=== PATIENT | male | born 1980 | race Caucasian/White ===

== ENCOUNTER 2017-12-05 11:05 | Emergency (ER) | payer BC ==
[2017-12-05] MEDS ORDERED: Sodium Chloride 0.9% 10 ML Syringe FLUSH PRN (11:26)
--- NOTE | 2017-12-05 14:13 | EDM.PDOC ---
ED HPI GENERAL MEDICAL PROBLEM - General Chief Complaint: Upper Extremity Injury/Pain Stated Complaint: HAND RED AND SWOLLEN SENT BY DR ROMERO Time Seen by Provider: 12/05/17 11:14 Source of Information: Reports: Patient History Limitations: Reports: No Limitations - History of Present Illness INITIAL COMMENTS - FREE TEXT/NARRATIVE: The patient presents with right wrist pain and swelling. He says a few days ago he had a rash that he scrubbed good and he got an abrasion to the dorsal aspect of his wrist. He then developed redness swelling and pain. He went to the walk in clinic at [place] and they put him on some doxycycline. That was on and he has more swelling and pain. He denies a fever. He is right handed. Onset: Gradual Duration: Day(s): Location: Reports: Upper Extremity, Right (wrist) Quality: Reports: Sharp Severity: Moderate Improves with: Reports: Immobilization Worsens with: Reports: Movement Context: Reports: Activity (he was scrubing a rash) Associated Symptoms: Reports: No Other Symptoms Treatments [employer]: Reports: Other (see below) Other Treatments [employer]: doxycycline Right Hand Pain Score (Numeric/FACES): 5 - Related Data Allergies Allergy/AdvReac Type Severity Reaction Status Date / Time chocolate flavor Allergy Sweating Verified 12/04/14 07:19 tomato Allergy Sweating Verified 12/04/14 07:19 wheat Allergy Sweating Verified 12/04/14 07:19 Home Meds: Home Meds Doxycycline [Vibramycin] 100 mg PO BID 12/05/17 [History] Past Medical History Cardiovascular History: Reports: Other (See Below) Other Cardiovascular History: chest surgery to remove glands in chest - Past Surgical History HEENT Surgical History: Reports: Oral Surgery Musculoskeletal Surgical History: Reports: Other (See Below) Other Musculoskeletal Surgeries/Procedures:: ACL replace surgery to right knee; L4-L5 back surgery cleaned out;spinalstenosis and widened the vertibrae Social & Family History - Tobacco Use Smoking Status *Q: Never Smoker - Caffeine Use Caffeine Use: Reports: Coffee, Soda, Tea - Recreational Drug Use Recreational Drug Use: No Review of Systems - Review of Systems Review Of Systems: See Below Constitutional: Reports: No Symptoms Ears: Reports: No Symptoms Nose: Reports: No Symptoms Mouth/Throat: Reports: No Symptoms Respiratory: Reports: No Symptoms Cardiovascular: Reports: No Symptoms GI/Abdominal: Reports: No Symptoms Genitourinary: Reports: No Symptoms Musculoskeletal: Reports: Other (Right wrist has pain, swelling and erythema) ED EXAM, GENERAL - Physical Exam Exam: See Below Exam Limited By: No Limitations General Appearance: Alert, No Apparent Distress Ears: Normal External Exam Nose: Normal Inspection Head: Atraumatic, Normocephalic Neck: Normal Inspection Respiratory/Chest: No Respiratory Distress, Lungs Clear, Normal Breath Sounds Cardiovascular: Regular Rate, Rhythm, No Edema, No Murmur GI/Abdominal: Soft, Non-Tender, No Organomegaly, No Mass Extremities: Other (Moderate edema and erythema to dorsal aspect of his right hand with some extension up his arm. He has a small abrasion to the dorsal aspect.) Course - Vital Signs Last Recorded V/S: Last Vital Signs Temp 96.9 F 12/05/17 11:13 Pulse 88 12/05/17 11:13 Resp 20 12/05/17 11:13 BP 142/82 H 12/05/17 11:13 Pulse Ox 99 12/05/17 11:13 - Orders/Labs/Meds Orders: Active Orders 24 hr Category Date Time Status Peripheral IV Care [RC] . DIRECTED Care 12/05/17 11:26 Active Wrist Comp Min 3V Rt [CR] Stat Exams 12/05/17 13:40 Taken Sodium Chloride 0.9% [Saline Flush] Med 12/05/17 11:26 Active 10 ml FLUSH ASDIRECTED PRN Durable Medical Equipment for Discharge [DME for Oth 12/05/17 14:17 Ordered Discharge] [COMM] Stat Peripheral IV Insertion Adult [OM.PC] Routine Oth 12/05/17 11:26 Ordered Medication Orders Sodium Chloride (Saline Flush) 10 ml FLUSH ASDIRECTED PRN PRN Reason: Keep Vein Open Last Admin: 12/05/17 12:00 Dose: 10 ml Labs: Laboratory Tests 12/05/17 12/05/17 Range/Units 11:37 11:37 WBC 4.71 (4.23-9.07) K/mm3 RBC 4.95 (4.63-6.08) M/mm3 Hgb 13.9 (13.7-17.5) gm/L Hct 42.2 (40.1-51.0) % MCV 85.3 (79.0-92.2) fl MCH 28.1 (25.7-32.2) pg MCHC 32.9 (32.2-35.5) g/dl RDW Std Deviation 42.1 (35.1-43.9) fL Plt Count 185 (163-337) K/mm3 MPV 10.0 (9.4-12.3) fl Neut % (Auto) 52.5 (34.0-67.9) % Lymph % (Auto) 32.1 (21.8-53.1) % Swisher % (Auto) 12.5 H (5.3-12.2) % Eos % (Auto) 1.9 (0.8-7.0) Baso % (Auto) 0.8 (0.1-1.2) % Neut # (Auto) 2.47 (1.78-5.38) K/mm3 Lymph # (Auto) 1.51 (1.32-3.57) K/mm3 Swisher # (Auto) 0.59 (0.30-0.82) K/mm3 Eos # (Auto) 0.09 (0.04-0.54) K/mm3 Baso # (Auto) 0.04 (0.01-0.08) K/mm3 Sodium 138 (136-145) mEq/L Potassium 4.0 (3.5-5.1) mEq/L Chloride 105 (98-107) mEq/L Carbon Dioxide 27 (21-32) mEq/L Anion Gap 10.0 (5-15) BUN 11 (7-18) mg/dL Creatinine 0.9 (0.7-1.3) mg/dL Est Cr Clr Drug Dosing 109.78 mL/min Estimated GFR (MDRD) > 60 (>60) mL/min BUN/Creatinine Ratio 12.2 L (14-18) Glucose 148 H (74-106) mg/dL Calcium 9.1 (8.5-10.1) mg/dL Total Bilirubin 0.4 (0.2-1.0) mg/dL AST 33 (15-37) U/L ALT 73 H (16-63) U/L Alkaline Phosphatase 57 (46-116) U/L C-Reactive Protein 6.6 H* (<1.0) mg/dL Total Protein 7.0 (6.4-8.2) g/dl Albumin 3.2 L (3.4-5.0) g/dl Globulin 3.8 gm/dL Albumin/Globulin Ratio 0.8 L (1-2) Meds: Medications Generic Name Dose Route Start Last Admin Trade Name Frelloyd PRN Reason Stop Dose Admin Sodium Chloride 10 ml 12/05/17 11:26 12/05/17 12:00 Saline Flush FLUSH 10 ml ASDIRECTED PRN Administration Keep Vein Open Discontinued Medications Generic Name Dose Route Start Last Admin Trade Name Freq PRN Reason Stop Dose Admin Vancomycin HCl 1 gm/ Sodium 250 mls @ 250 mls/hr 12/05/17 12:00 12/05/17 13: 04 Chloride IV 12/05/17 13:59 250 mls/hr Q1H ABAD Administration - Re-Assessments/Exams Free Text/Narrative Re-Assessment/Exam: 12/05/17 14:09 I ordered an IV saline lock, labs and vancomycin 2 grams IV. His WBC and CBC looks good. His CRP is elevated at 6.6. I feel he needs to be admitted. I called Dr Houston our hospitalist security incident response engineer and she came to see the patient. She agreed he needed to be admitted. We have no orthopedic coverage on this weekend and our general surgeon security incident response engineer does not do hands. She has no back up if he gets worse so she recommended the patient go down to [place]. He does not really want to go to [place]. I also called his doctor Dr Romero and he wants him admitted but he does not really think he needs to go to [place]. I will set him up for outpatient vancomycin for a few days and splint his arm. Departure - Departure Time of Disposition: 14:25 Disposition: Home, Self-Care 01 Condition: Good Clinical Impression: Cellulitis of right hand, Cellulitis of right arm - Discharge Information *PRESCRIPTION DRUG MONITORING PROGRAM REVIEWED*: No *COPY OF PRESCRIPTION DRUG MONITORING REPORT IN PATIENT JAYDEN: No Referrals: Toby Romero MD [Primary Care Provider] - 1 Week Forms: ED Department Discharge Additional Instructions: Wear the splint for a week. Elevate your arm above your heart to help with the swelling. Put warm compresses on the affected area 3 times per day for 3 days. Please come back tonight at 10pm for another dose of antibiotic. Then come at 10am in the morning. Please return if you are worse. - My Orders Last 24 Hours: My Active Orders 12/05/17 11:26 Peripheral IV Care [RC] . DIRECTED Sodium Chloride 0.9% [Saline Flush] 10 ml FLUSH ASDIRECTED PRN Peripheral IV Insertion Adult [OM.PC] Routine 12/05/17 13:40 Wrist Comp Min 3V Rt [CR] Stat 12/05/17 14:17 Durable Medical Equipment for Discharge [DME for Discharge] [COMM] Stat - Assessment/Plan Last 24 Hours: My Active Orders 12/05/17 11:26 Peripheral IV Care [RC] . DIRECTED Sodium Chloride 0.9% [Saline Flush] 10 ml FLUSH ASDIRECTED PRN Peripheral IV Insertion Adult [OM.PC] Routine 12/05/17 13:40 Wrist Comp Min 3V Rt [CR] Stat 12/05/17 14:17 Durable Medical Equipment for Discharge [DME for Discharge] [COMM] Stat
--- NOTE | 2017-12-07 07:14 | CR ---
Right wrist: Four views of the right wrist were obtained. Comparison: No previous study. Joint spaces are preserved. Mild soft tissue swelling is noted. No fracture, dislocation or other bony abnormality is seen. Impression: 1. Soft tissue swelling. No bony abnormality is identified on right wrist exam. Diagnostic code #2
== END 2017-12-05 14:05 | disposition home or self-care (01) ==
LOC: JD.ED 11:05
DX: S60.811A Abrasion of right wrist, initial encounter (principal); L03.113 Cellulitis of right upper limb; Z91.018 Allergy to other foods; X58.XXXA Exposure to other specified factors, initial encounter
CPT/HCPCS: 36415; 73110; 80053; 85025; 86140; 96365; 96367; 99284; J3370; J7050